=== PATIENT | female | born 1965 | race Caucasian/White ===

== ENCOUNTER 2017-05-24 12:16 | Day surgery (SDC) | payer OTHER ==
[~2017-05-24] VITALS: Ht 162.6 cm; Wt 96.6 kg
[~2017-05-24 12:16] MED LIST: ALLO100T PO; CARI250T10 PO; FENO130C6 PO; HYDR-3498 PO; LOVA20TA PO; LUN1 PO; PANT20TA3 PO; TRIA1TAB PO
[2017-05-24 13:28] VITALS: Ht 162.6 cm; Wt 96.6 kg
[2017-05-24 13:38] VITALS: BP 137/73; PULSE 65; RESP 16
[2017-05-24] MEDS ORDERED: LORA0.5T PO (13:38)
[2017-05-24] MEDS ORDERED: GABA100C14 PO (13:38)
--- NOTE | 2017-05-24 14:12 | OPPN ---
Date/Time of Note Date/Time of Note DATE: 05/24/17 TIME: 14:07 Operative Report Free Text/Dictation SCREENING COLONOSCOPY NORMAL REPEAT COLONOSCOPY IN 10 YRS Preoperative Diagnosis SCREENING COLONOSCOPY Postoperative Diagnosis NORMAL COLONOSCOPY Operation/Procedure Performed COLONOSCOPY Provider: MARY RUTH MD Anesthesia Type: moderate sedation (VERSED 4MG/FENTANYL 100 MCG) Estimated blood loss: none Transfusion Required: no Specimen: none Grafts/Implants: none Complications: no MARY RUTH MD May 24, 2017 2:12 pm
[2017-05-24] MEDS ORDERED: MIDAZOLAM 1 MG/ML 2 ML INJ ONE ×2 (14:23→14:24)
[2017-05-24] MEDS ORDERED: FENTAnyl 50 MCG/ML VIAL ONE (14:23)
--- NOTE | 2017-05-27 07:50 | GILP ---
DATE OF PROCEDURE: 05/24/2017 PREOPERATIVE DIAGNOSIS: Screening colonoscopy. POSTOPERATIVE DIAGNOSIS: Normal colonoscopy. DESCRIPTION OF PROCEDURE: After obtaining informed consent, patient was sedated, monitored on oximetry, EKG, blood pressure. The patient received 4 mg IV Versed and 100 mcg of fentanyl throughout the procedure. Very carefully advanced Olympus video colonoscope all the way to the cecum. The cecum, ascending colon, transverse colon, descending colon, sigmoid colon and rectum essentially normal. Ileocecal valve, appendiceal opening, also pictures were taken. Retroflexion in the rectum also normal. Postop essentially normal. PLAN: Advise repeat colonoscopy in 10 years. Resume preop and follow up as outpatient with primary MD. Dictated By: Landon Preciado MD /[email or web address] /Document#: [id number] ; Dr. Cristhian Ashley
== END 2017-05-24 15:28 | disposition home or self-care (01) ==
LOC: GIL 12:16
PROVIDERS: ATTEND Internal Medicine
DX: Z12.11 Encounter for screening for malignant neoplasm of colon (principal); I10 Essential (primary) hypertension; E78.5 Hyperlipidemia, unspecified
CPT/HCPCS: 45378; J2250; J3010